=== PATIENT | male | born 1945 | race Caucasian/White ===

== ENCOUNTER 2024-05-29 18:38 | Observation (INO) ==
[2024-05-29] MEDS: Lactated Ringers 1000 ml BAG IV.FLUID IV ONE (19:09)
[2024-05-29 19:18] LABS: ABS Eosinophils 0.2 10^3/uL (0.0-0.5); ABS Lymphocytes 1.4 10^3/uL (1.0-4.8); ABS Monocytes 0.6 10^3/uL (0.0-1.1); ABS Neutrophils 7.8 10^3/uL (1.5-7.6); ABS Nucleated RBC 0.01 10^3/ul; Eosinophil % 1.7 %; Hematocrit 40.8 % (38-53); Hemoglobin 14.3 g/dL (13.2-16.3); Lymphocyte % 13.9 %; Mean Corpuscular Hemoglobin 31.1 pg (27-33); Mean Corpuscular Hgb Conc 34.9 g/dL (31-36); Mean Platelet Volume 7.8 fL (7.5-11.2); Nucleated Red Blood Cells % 0.1 %/100WBC (0.0-0.8); Platelet Count 255 10^3/uL (150-450); Red Blood Count 4.59 10^6/uL (4.06-5.63); Red Cell Distribution Width 13.4 % (12-17); White Blood Count 9.9 10^3/uL (3.6-10.2)
[2024-05-29] MEDS: Lactated Ringers 1000 ml BAG 1,000 ML IV ONE (19:30)
[2024-05-29] MEDS ORDERED: Metoprolol Tartrate 5 mg VIAL 5 ml VIAL (1 mg/ml) ONE ×2 (19:47)
[2024-05-29] MEDS: Metoprolol Tartrate 5 mg VIAL 5 ml VIAL (1 mg/ml) IV ONE ×2 (19:50→20:00)
[2024-05-29] MEDS ORDERED: Magnesium Sulfate 2 gm BAG 2 GM/50 ML BAG ONE (20:09)
[2024-05-29] MEDS: Magnesium Sulfate 2 gm BAG 2 GM/50 ML BAG IVPB ONE ×2 (20:11→21:02)
[2024-05-29 20:13] LABS: Albumin 4.1 g/dL (3.2-5.2); Albumin/Globulin Ratio 1.6 (1-3); Calcium 9.4 mg/dL (8.6-10.3); Creatinine, Serum 0.92 mg/dL (0.67-1.17); Globulin 2.6 g/dL (2-4); Magnesium 1.6 mg/dL (1.9-2.7); Potassium 3.5 mmol/L (3.5-5.0); Total Bilirubin 0.6 mg/dL (0.2-1.0); Total Protein 6.7 g/dL (6.4-8.9); eGFR CKD-EPI 85.1 (>60)
[2024-05-29 20:18] LABS: Urine Appearance Clear; Urine Bilirubin Negative (Negative); Urine Blood Negative (Negative); Urine Color Light-Yellow; Urine Glucose 2+ (>=150 mg/dL) (Negative); Urine Ketones Negative (Negative); Urine Nitrite Negative (Negative); Urine Protein Trace (Negative); Urine Specific Gravity 1.013 (1.002-1.030); Urine Urobilinogen Negative (Negative); Urine pH 6.5 (5.0-8.0)
[2024-05-29 20:30] LABS: High Sensitivity Troponin 1 Hr 7 pg/mL (<20)
[2024-05-29] MEDS: KCL 20 MEQ/100 ML IVPREMIX 20 MEQ/100 ML BAG IV ONE (21:00)
[2024-05-29] MEDS: Potassium Chlor 20 meq TAB.ER PO ONE (21:00)
[2024-05-29] MEDS ORDERED: Metoprolol Tartrate 5 mg VIAL 5 ml VIAL (1 mg/ml) IV PRN (22:19)
[2024-05-29 22:56] LABS: TSH Ultra Thyroid Stim Horm 3.39 mcIU/mL (0.34-5.60)
[2024-05-29] MEDS: Enoxaparin 40 MG/0.4 ML SYR SUBCUT SCH (23:13)
[2024-05-30 01:18] LABS: Calcium 8.6 mg/dL (8.6-10.3); Creatinine, Serum 0.77 mg/dL (0.67-1.17); Magnesium 2.3 mg/dL (1.9-2.7); Potassium 4.1 mmol/L (3.5-5.0); eGFR CKD-EPI 91.6 (>60)
[2024-05-30] MEDS: Sulfur Hexaflouride MICROSPHR 25 MG VIAL IV PRN (09:16)
[2024-05-30 10:34] LABS: HDL Cholesterol 49.2 mg/dL
[2024-05-30 10:56] VITALS: BP 134/82
== END 2024-05-30 12:02 | disposition left against medical advice (07) ==
LOC: ED 18:38 → EDHOLD 18:38 → SUATTDRO 22:17 → EDHOLD 05-30 12:01
PROVIDERS: ADMIT Student in an Organized Health Care Education/Training Program; ATTEND Internal Medicine